=== PATIENT | male | born 1990 | race African-American/Black ===

== ENCOUNTER 2018-05-26 13:31 | Emergency (ER) | payer SELFPAY ==
--- NOTE | 2018-05-26 14:55 | EDPHYS ---
Physician Documentation [facility] Name: Louisa Ji Jr Age: 27 yrs Sex: Male : 1990 Arrival Date: 05/26/2018 Time: 13:33 Bed 12 Private MD: None, None ED Physician Luis Angel Hathaway HPI: 05/26 14:18 This 27 yrs old Black Male presents to ER via Ambulatory with complaints of Flu tw4 Symptoms. 14:18 The patient presents with sore throat. The patient describes throat pain as raw, tw4 scratchy. Onset: The symptoms/episode began/occurred yesterday. Severity of symptoms: At their worst the symptoms were mild, in the emergency department the symptoms are unchanged. Modifying factors: The symptoms are alleviated by nothing, the symptoms are aggravated by swallowing. Associated signs and symptoms: Pertinent positives: chills, flu-like symptoms, myalgias, Pertinent negatives chest pain, diarrhea, dysphagia, earache, fever, headache, nausea, rhinorrhea. The patient has not experienced similar symptoms in the past. Historical: - Allergies: 13:43 No Known Allergies; aj1 - Home Meds: 13:43 None [Active]; aj1 - PMHx: 13:43 None; aj1 - PSHx: 13:43 None; aj1 - Immunization history:: Flu vaccine is not up to date. - Social history:: Smoking status: Patient uses tobacco products, smokes one-half pack cigarettes per day. - Ebola Screening: : Patient denies travel to an Ebola-affected area in the 21 days before illness onset. ROS: 14:18 Cardiovascular: Negative for chest pain, palpitations, and edema, Respiratory: Negative tw4 for shortness of breath, cough, wheezing, and pleuritic chest pain, Abdomen/GI: Negative for abdominal pain, nausea, vomiting, diarrhea, and constipation, Back: Negative for injury and pain, MS/Extremity: Negative for injury and deformity. 14:18 Constitutional: Positive for body aches, chills, Negative for fatigue, fever, malaise, poor PO intake. 14:18 ENT: Positive for sore throat, Negative for injury or acute deformity, drainage from ear(s), ear pain, foreign body sensation, Gum pain hearing loss, pulling at ears, Teeth pain tinnitus, nasal discharge. Exam: 14:18 Constitutional: This is a well developed, well nourished patient who is awake, alert, tw4 and in no acute distress. Head/Face: Normocephalic, atraumatic. Cardiovascular: Regular rate and rhythm with a normal S1 and S2. No gallops, murmurs, or rubs. Normal PMI, no JVD. No pulse deficits. Respiratory: Lungs have equal breath sounds bilaterally, clear to auscultation and percussion. No rales, rhonchi or wheezes noted. No increased work of breathing, no retractions or nasal flaring. Abdomen/GI: Soft, non-tender, with normal bowel sounds. No distension or tympany. No guarding or rebound. No evidence of tenderness throughout. 14:18 ENT: External ear(s): are unremarkable, Ear canal(s): are normal, TM's: are normal, Posterior pharynx: erythema, that is mild. Vital Signs: 13:43 BP 142 / 70; Pulse 84; Resp 18; Temp 98.9; Pulse Ox 100% on R/A; Weight 81.65 kg (R); aj1 Height 6 ft. 1 in. (185.42 cm); Pain 0/10; 13:43 Body Mass Index 23.75 (81.65 kg, 185.42 cm) aj1 MDM: 13:51 Patient medically screened. tw4 14:54 Data reviewed: vital signs, nurses notes. Counseling: I had a detailed discussion with [facility] the patient and/or guardian regarding: the historical points, exam findings, and any diagnostic results supporting the discharge/admit diagnosis, lab results. Special discussion: I discussed with the patient/guardian in detail that at this point there is no indication for admission to the hospital. It is understood, however, that if the symptoms persist or worsen the patient needs to return immediately for re-evaluation. 05/26 14:09 Order name: Strep; Complete Time: 14:53 05/26 14:55 Interpretation: Within normal limits. tw05/26 14:09 Order name: Flu; Complete Time: 14:53 tw4 05/26 14:55 Interpretation: Within normal limits. tw4 05/26 14:48 Order name: Throat Culture EDMS Administered Medications: No medications were administered Disposition: 05/26/18 14:54 Discharged to Home. Impression: viral illness. - Condition is Stable. - Discharge Instructions: Upper Respiratory Infection, Adult, [id number]. - Work release form, Medication Reconciliation Form, Thank You Letter, Antibiotic Education, Prescription Opioid Use form. - Follow up: Private Physician; When: As needed; Reason: Further diagnostic work-up, Recheck today's complaints, Re-evaluation by your physician. - Problem is new. - Symptoms have improved. Signatures: Dispatcher [employer] EDRadha Onofre RN RN aj1 Marcela Monge RN RN iw Luis Angel Hathaway MD MD tw4 Corrections: (The following items were deleted from the chart) 15:04 14:54 05/26/2018 14:54 Discharged to Home. Impression: viral illness. Condition is iw Stable. Forms are Medication Reconciliation Form, Thank You Letter, Antibiotic Education, Prescription Opioid Use. Follow up: Private Physician; When: As needed; Reason: Further diagnostic work-up, Recheck today's complaints, Re-evaluation by your physician. Problem is new. Symptoms have improved. tw4
--- NOTE | 2018-05-26 14:55 | ER ---
Nurse's Notes [facility] Name: Louisa Ji Jr Age: 27 yrs Sex: Male : 1990 Arrival Date: 05/26/2018 Time: 13:33 Bed 12 Private MD: None, None Diagnosis: viral illness Presentation: 05/26 13:42 Presenting complaint: Patient states: Yesterday he was sent home from work for chills aj1 and body aches, reports that he feels better today, but he needs a work note to go back to work. Transition of care: patient was not received from another setting of care. Onset of symptoms was May 25, 2018. Risk Assessment: Do you want to hurt yourself or someone else? Patient reports no desire to harm self or others. Initial Sepsis Screen: Does the patient meet any 2 criteria? No. Patient's initial sepsis screen is negative. Does the patient have a suspected source of infection? No. Patient's initial sepsis screen is negative. Care prior to arrival: None. 13:42 Method Of Arrival: Ambulatory aj1 13:42 Acuity: EMERY 5 aj1 Triage Assessment: 13:43 General: Appears in no apparent distress. comfortable, Behavior is calm, cooperative, aj1 appropriate for age. Pain: Denies pain. Neuro: Level of Consciousness is awake, alert, obeys commands. Historical: - Allergies: 13:43 No Known Allergies; aj1 - Home Meds: 13:43 None [Active]; aj1 - PMHx: 13:43 None; aj1 - PSHx: 13:43 None; aj1 - Immunization history:: Flu vaccine is not up to date. - Social history:: Smoking status: Patient uses tobacco products, smokes one-half pack cigarettes per day. - Ebola Screening: : Patient denies travel to an Ebola-affected area in the 21 days before illness onset. Screenin:00 Abuse screen: Denies threats or abuse. Denies injuries from another. Nutritional iw screening: No deficits noted. Tuberculosis screening: No symptoms or risk factors identified. Fall Risk None identified. Assessment: 14:00 General: Appears in no apparent distress. Behavior is calm, cooperative. Neuro: Level iw of Consciousness is awake, alert, obeys commands, Oriented to person, place, time, situation, Moves all extremities. Full function. Cardiovascular: Patient's skin is warm and dry. Respiratory: Respiratory effort is even, unlabored, Respiratory pattern is regular, symmetrical. GI: Abdomen is flat, non-distended. Derm: Skin is pink, warm \T\ dry. normal. Musculoskeletal: Range of motion: intact in all extremities. Vital Signs: 13:43 BP 142 / 70; Pulse 84; Resp 18; Temp 98.9; Pulse Ox 100% on R/A; Weight 81.65 kg (R); aj1 Height 6 ft. 1 in. (185.42 cm); Pain 0/10; 13:43 Body Mass Index 23.75 (81.65 kg, 185.42 cm) aj1 ED Course: 13:33 Patient arrived in ED. sb2 13:34 None, None is Private Physician. sb2 13:43 Triage completed. aj1 13:43 Arm band placed on Patient placed in an exam room. aj1 13:50 Luis Angel Hathaway MD is Attending Physician. tw4 14:00 Patient has correct armband on for positive identification. iw 15:01 Marcela Monge RN is Primary Nurse. iw 15:03 No provider procedures requiring assistance completed. Patient did not have IV access iw during this emergency room visit. Administered Medications: No medications were administered Outcome: 14:54 Discharge ordered by . tw4 15:03 Discharged to home ambulatory. iw 15:03 Condition: good 15:03 Discharge instructions given to patient, Instructed on discharge instructions, follow up and referral plans. Demonstrated understanding of instructions, follow-up care. 15:04 Patient left the ED. iw Signatures: Radha Toussaint RN RN aj1 Marcela Monge, PETROS RN iw Luis Angel Hathaway MD MD tw4 Dot Rivas sb2
== END 2018-05-26 15:04 | disposition home or self-care (01) ==
LOC: ER 13:31
DX: B34.9 Viral infection, unspecified (principal); F17.210 Nicotine dependence, cigarettes, uncomplicated
CPT/HCPCS: 87070; 87081; 87804; 99281

== ENCOUNTER 2019-06-17 18:05 | Emergency (ER) | payer SELFPAY ==
--- NOTE | 2019-06-17 19:29 | ER ---
Nurse's Notes [facility] Name: Louisa Ji Jr Age: 28 yrs Sex: Male : 1990 Arrival Date: 06/17/2019 Time: 18:08 Bed 16 Private MD: Diagnosis: Acute tonsillitis Presentation: 06/17 18:20 Presenting complaint: Patient states: c/o sore throat, R sided neck pain, R ear pain ch started this morning. pt has ill children this week. Transition of care: patient was not received from another setting of care. Onset of symptoms was June 17, 2019 at 06:00. Risk Assessment: Do you want to hurt yourself or someone else? Patient reports no desire to harm self or others. Initial Sepsis Screen: Does the patient meet any 2 criteria? No. Patient's initial sepsis screen is negative. Does the patient have a suspected source of infection? No. Patient's initial sepsis screen is negative. Care prior to arrival: None. 18:20 Method Of Arrival: Ambulatory 18:20 Acuity: EMERY 4 Triage Assessment: 18:21 General: Appears in no apparent distress. comfortable, Behavior is calm, cooperative. ch Historical: - Allergies: 18:21 No Known Allergies; ch - Home Meds: 18:21 None [Active]; ch - PMHx: 18:21 None; ch - PSHx: 18:21 None; ch - Immunization history:: Adult Immunizations up to date, Last tetanus immunization: not indicated for visit today. > 10 years ago Flu vaccine is not up to date. - Social history:: Smoking status: Patient uses tobacco products, smokes one-half pack cigarettes per day, Patient/guardian denies using alcohol, street drugs. - Ebola Screening: : Patient negative for fever greater than or equal to 101.5 degrees Fahrenheit, and additional compatible Ebola Virus Disease symptoms Patient denies exposure to infectious person Patient denies travel to an Ebola-affected area in the 21 days before illness onset No symptoms or risks identified at this time. Screenin:18 Abuse screen: Denies threats or abuse. Nutritional screening: No deficits noted. jd3 Tuberculosis screening: No symptoms or risk factors identified. Fall Risk None identified. Assessment: 19:17 General: Appears in no apparent distress. uncomfortable, Behavior is calm, cooperative, jd3 appropriate for age. Pain: Complains of pain in throat Quality of pain is described as aching. Neuro: Level of Consciousness is awake, alert, obeys commands, Oriented to person, place, time, situation. Cardiovascular: Capillary refill < 3 seconds Patient's skin is warm and dry. Respiratory: Airway is patent Respiratory effort is even, unlabored, Respiratory pattern is regular, symmetrical, Denies cough, shortness of breath at rest. GI: No signs and/or symptoms were reported involving the gastrointestinal system. : No signs and/or symptoms were reported regarding the genitourinary system. EENT: Throat is reddened. Derm: Skin is intact, Skin is dry, Skin is normal, Skin temperature is warm. Musculoskeletal: Circulation, motion, and sensation intact. Range of motion: intact in all extremities. 19:35 Reassessment: Patient appears in no apparent distress at this time. Patient and/or jd3 family updated on plan of care and expected duration. Pain level reassessed. Patient is alert, oriented x 3, equal unlabored respirations, skin warm/dry/pink. reported understanding of discharge instructions. even and steady gait upon discharge. Vital Signs: 18:21 BP 128 / 62; Pulse 74; Resp 18; Temp 98.6; Pulse Ox 99% on R/A; Weight 81.65 kg; Height ch 5 ft. 6 in. (167.64 cm); Pain 9/10; 18:21 Body Mass Index 29.05 (81.65 kg, 167.64 cm) ED Course: 18:08 Patient arrived in ED. as 18:12 [facility]C [facility]. kb 18:12 Rodrigo Kirby MD is Attending Physician. kb 18:21 Triage completed. 18:21 Arm band placed on left wrist. Patient placed in an exam room, on a stretcher. EKG completed in triage. Results shown to . 19:10 Strep Sent. 19:17 Ezekiel Montiel RN is Primary Nurse. j 19:19 Patient has correct armband on for positive identification. Bed in low position. Call jd3 light in reach. Side rails up X 1. Adult w/ patient. 19:35 No provider procedures requiring assistance completed. Patient did not have IV access jd3 during this emergency room visit. Administered Medications: No medications were administered Outcome: 19:28 Discharge ordered by . lawrence 19:35 Discharged to home ambulatory, with family. jd3 19:35 Condition: stable 19:35 Discharge instructions given to patient, family, Instructed on discharge instructions, follow up and referral plans. medication usage, Demonstrated understanding of instructions, follow-up care, medications, Prescriptions given X 1. 19:36 Patient left the ED. jd3 Signatures: Charu Mauricio, CITY SOLICITOR-C CITY SOLICITOR-Alfreda Coates, RN RN Estelita Lou Jonathon, RN RN jwilfredo
--- NOTE | 2019-06-17 19:30 | EDPHYS ---
Physician Documentation [facility] Name: Louisa Ji Jr Age: 28 yrs Sex: Male : 1990 Arrival Date: 06/17/2019 Time: 18:08 Bed 16 Private MD: ED Physician Rodrigo Kirby HPI: 06/17 19:22 This 28 yrs old Black Male presents to ER via Ambulatory with complaints of Sore Throat.kb 19:22 The patient presents with sore throat. The patient describes throat pain as constant. kb Onset: The symptoms/episode began/occurred yesterday. Severity of symptoms: At their worst the symptoms were moderate, in the emergency department the symptoms are unchanged. Modifying factors: The symptoms are alleviated by nothing, the symptoms are aggravated by swallowing, Patient's oral intake status: good Denies contact with similarly ill indivduals. Associated signs and symptoms: Pertinent positives: Sore throat. The patient has not experienced similar symptoms in the past. The patient has not recently seen a physician. Historical: - Allergies: 18:21 No Known Allergies; ch - Home Meds: 18:21 None [Active]; ch - PMHx: 18:21 None; ch - PSHx: 18:21 None; ch - Immunization history:: Adult Immunizations up to date, Last tetanus immunization: not indicated for visit today. > 10 years ago Flu vaccine is not up to date. - Social history:: Smoking status: Patient uses tobacco products, smokes one-half pack cigarettes per day, Patient/guardian denies using alcohol, street drugs. - Ebola Screening: : Patient negative for fever greater than or equal to 101.5 degrees Fahrenheit, and additional compatible Ebola Virus Disease symptoms Patient denies exposure to infectious person Patient denies travel to an Ebola-affected area in the 21 days before illness onset No symptoms or risks identified at this time. ROS: 19:14 Constitutional: Negative for fever, chills, and weight loss, Neck: Negative for injury, kb pain, and swelling, Cardiovascular: Negative for chest pain, palpitations, and edema, Respiratory: Negative for shortness of breath, cough, wheezing, and pleuritic chest pain, Abdomen/GI: Negative for abdominal pain, nausea, vomiting, diarrhea, and constipation, MS/Extremity: Negative for injury and deformity, Skin: Negative for injury, rash, and discoloration, Neuro: Negative for headache, weakness, numbness, tingling, and seizure. 19:14 ENT: Positive for sore throat. Exam: 19:14 Constitutional: This is a well developed, well nourished patient who is awake, alert, kb and in no acute distress. Head/Face: Normocephalic, atraumatic. Neck: Trachea midline, no thyromegaly or masses palpated, and no cervical lymphadenopathy. Supple, full range of motion without nuchal rigidity, or vertebral point tenderness. No Meningismus. Chest/axilla: Normal chest wall appearance and motion. Nontender with no deformity. No lesions are appreciated. Cardiovascular: Regular rate and rhythm with a normal S1 and S2. No gallops, murmurs, or rubs. Normal PMI, no JVD. No pulse deficits. Respiratory: Lungs have equal breath sounds bilaterally, clear to auscultation and percussion. No rales, rhonchi or wheezes noted. No increased work of breathing, no retractions or nasal flaring. Abdomen/GI: Soft, non-tender, with normal bowel sounds. No distension or tympany. No guarding or rebound. No evidence of tenderness throughout. Back: No spinal tenderness. No costovertebral tenderness. Full range of motion. Skin: Warm, dry with normal turgor. Normal color with no rashes, no lesions, and no evidence of cellulitis. MS/ Extremity: Pulses equal, no cyanosis. Neurovascular intact. Full, normal range of motion. Neuro: Awake and alert, GCS 15, oriented to person, place, time, and situation. Cranial nerves II-XII grossly intact. Motor strength 5/5 in all extremities. Sensory grossly intact. Cerebellar exam normal. Normal gait. 19:14 ENT: Posterior pharynx: Airway: normal, no evidence of obstruction, Tonsils: bilaterally enlarged, with erythema, Uvula: normal, midline, swelling, that is mild, erythema, that is marked, exudate, is not appreciated. Vital Signs: 18:21 BP 128 / 62; Pulse 74; Resp 18; Temp 98.6; Pulse Ox 99% on R/A; Weight 81.65 kg; Height ch 5 ft. 6 in. (167.64 cm); Pain 9/10; 18:21 Body Mass Index 29.05 (81.65 kg, 167.64 cm) MDM: 18:22 Patient medically screened. kb 19:21 Data reviewed: vital signs, nurses notes. Data interpreted: Pulse oximetry: on room air kb is 99 %. Interpretation: normal. 19:28 Counseling: I had a detailed discussion with the patient and/or guardian regarding: the kb historical points, exam findings, and any diagnostic results supporting the discharge/admit diagnosis, lab results, the need for outpatient follow up, a family practitioner, to return to the emergency department if symptoms worsen or persist or if there are any questions or concerns that arise at home. 06/17 18:16 Order name: Strep; Complete Time: 19:26 kb 06/17 19:35 Order name: Throat Culture EDMS Administered Medications: No medications were administered Disposition: 06/17/19 19:28 Discharged to Home. Impression: Acute tonsillitis. - Condition is Stable. - Discharge Instructions: Tonsillitis, [id number]. - Prescriptions for Augmentin 875- 125 mg Oral Tablet - take 1 tablet by ORAL route every 12 hours for 10 days; 20 tablet. - Medication Reconciliation Form, Thank You Letter, Antibiotic Education, Prescription Opioid Use form. - Follow up: Emergency Department; When: As needed; Reason: Worsening of condition. Follow up: Private Physician; When: 2 - 3 days; Reason: Recheck today's complaints, Continuance of care, Re-evaluation by your physician. Addendum: 06/19/2019 07:00 Co-signature as Attending Physician, Rodrigo Kirby MD. r n Signatures: Dispatcher [employer] EDOR Charu Mauricio, C D STRIPPER-C C D STRIPPER-Ckb Alfreda Lujan RN RN ch Nieto, Roman, MD MD rn Davies, Jonathon, RN RN jd3 Corrections: (The following items were deleted from the chart) 06/17 19:36 19:28 06/17/2019 19:28 Discharged to Home. Impression: Acute tonsillitis. Condition is jd3 Stable. Forms are Medication Reconciliation Form, Thank You Letter, Antibiotic Education, Prescription Opioid Use. Follow up: Emergency Department; When: As needed; Reason: Worsening of condition. Follow up: Private Physician; When: 2 - 3 days; Reason: Recheck today's complaints, Continuance of care, Re-evaluation by your physician. kb
== END 2019-06-17 19:36 | disposition home or self-care (01) ==
LOC: ER 18:05
DX: J03.90 Acute tonsillitis, unspecified (principal); F17.210 Nicotine dependence, cigarettes, uncomplicated
CPT/HCPCS: 87070; 87081; 99283